=== PATIENT | male | born 2000 | race Two or more races ===

== ENCOUNTER 2020-09-20 08:53 | Emergency (ER) | payer SELFPAY ==
[2020-09-20] MEDS ORDERED: ACETAMINOPHEN 325 MG TABLET PO STA (09:58)
[2020-09-20 10:04] VITALS: BP 107/62
--- NOTE | 2020-09-20 10:11 | XRAY Report ---
PROCEDURE: Hand 3 View LT INDICATIONS: trauma TECHNIQUE: 3 views of the hand(s) acquired. COMPARISON: None FINDINGS: Bones: There is a mildly displaced, comminuted fracture seen at the base of the fifth metacarpal. The re is mild intraventricular involvement seen. No suspicious bony lesions. Soft tissues: No suspicious soft tissue calcifications. IMPRESSION: Mildly displaced fracture of the base of the fifth metacarpal. Intra-articular involvement is faintly seen. If it would be helpful for clinical management decision making, please consider a dedicated CT for fu rther evaluation. Reviewed by: Surinder Vasquez MD on 09/20/2020 9:09 AM ELLIOT Approved by: Surinder Vasquez MD on 09/20/2020 9:09 AM ELLIOT Station ID: [id number]
--- NOTE | 2020-09-20 10:17 | ED Physician Documentation ---
History of Present Illness - Stated complaint Stated Complaint: LEFT HAND INJ - Chief complaint Chief Complaint: Trauma Ext - History obtained from History obtained from: Patient - Additonal information Additional information: 20-year-old man presents with left hand pain after punching a wall yesterday. Somewhat onset, located in the ulnar aspect, associated with swelling, constant and aching. Nonradiating. No pain with range of motion of the wrist. Sensation and movement intact. Review of Systems Musculoskeletal: reports: Extremity pain PD PAST MEDICAL HISTORY - Allergies Allergies/Adverse Reactions: Allergies Allergy/AdvReac Type Severity Reaction Status Date / Time No Known Drug Allergies Allergy Verified 09/20/20 09:02 PD ED PE NORMAL - Vitals Vital signs reviewed: Yes - General General: Alert and oriented X 3, No acute distress, Well developed/nourished - HEENT HEENT: Atraumatic, PERRL, EOMI - Extremities Extremities: Other (Point tenderness to base of fifth metacarpal on the left hand. Swelling over this aspect. Full range of motion of the wrist. Sensory, motor, vascular intact.) Results - Vitals Vitals: Vital Signs - 24 hr 09/20/20 09/20/20 09:00 10:01 Temperature 36.1 C L Heart Rate 72 72 Respiratory 16 16 Rate Blood Pressure 138/65 H 107/62 O2 Saturation 98 100 Oxygen O2 Source Room air PD MEDICAL DECISION MAKING - ED course ED course: 20-year-old man presents with boxer's fracture after punching a wall. Return precautions given. He will follow up with orthopedics. Impression 1 boxer's fracture Departure - Departure Disposition: 01 Home, Self Care Condition: Good Instructions: ED NELLY Lugo Follow-Up: Theo Tellez MD [Provider Admit Priv/Credential] - Comments: You are seen in the emergency department for a boxer's fracture, a break in the bone of the fifth metacarpal of the hand. You should follow-up with orthopedics for repeat exam in 1 week. Wear the splint until then and return to the emergency department you have any new or worsening symptoms or other concerns.
== END 2020-09-20 10:57 | disposition home or self-care (01) ==
LOC: ED 08:53
DX: S62.317A Displaced fracture of base of fifth metacarpal bone, left hand, initial encounter for closed fracture (principal); W22.8XXA Striking against or struck by other objects, initial encounter
CPT/HCPCS: 73130; 99281; 99283; A9270

== ENCOUNTER 2020-10-07 08:00 | Outpatient (CLI) | payer SELFPAY ==
--- NOTE | 2020-10-07 10:30 | XRAY Report ---
PROCEDURE: Hand 3 View LT INDICATIONS: DISPLACED FX OF BASE OF L 5TH METACARPAL TECHNIQUE: 3 views of the hand acquired. COMPARISON: Left knee radiographs 01/21/2021 FINDINGS: Bones: The previously seen fracture at the base of the fifth metacarpal is less prominent on the curr ent exam. The alignment appears unchanged. No new osseous abnormality is seen. No suspicious bony les ions. Soft tissues: No suspicious soft tissue calcifications. IMPRESSION: Unchanged alignment of the previously seen fifth metacarpal base fracture. Reviewed by: Tomas Alex MD on 10/07/2020 9:28 AM ELLIOT Approved by: Tomas Alex MD on 10/07/2020 9:28 AM ELLIOT Station ID: [id number]
== END 2020-10-07 23:59 | disposition home or self-care (01) ==
LOC: DI.N 08:00
PROVIDERS: ATTEND Physician Assistant
DX: S62.317D Displaced fracture of base of fifth metacarpal bone, left hand, subsequent encounter for fracture with routine healing (principal)

== ENCOUNTER 2020-10-28 09:45 | Outpatient (CLI) | payer SELFPAY ==
--- NOTE | 2020-10-28 14:04 | XRAY Report ---
PROCEDURE: Hand 3 View LT INDICATIONS: DISPLACED FX OF BASE OF L 5TH METACARPAL TECHNIQUE: 3 views of the hand(s) acquired. COMPARISON: X-ray hand 09/20/2020, 09/07/2020 FINDINGS: Bones: Stable alignment of fifth metacarpal base fracture with minimal interval healing. Soft tissues : No suspicious soft tissue calcifications. IMPRESSION: Minimal interval healing with stable alignment of fifth metacarpal base fracture. Reviewed by: Yumiko Stokes MD on 10/28/2020 2:02 PM PDT Approved by: Yumiko Stokes MD on 10/28/2020 2:02 PM PDT Station ID: [id number]
== END 2020-10-28 23:59 | disposition home or self-care (01) ==
LOC: DI.N 09:45
PROVIDERS: ATTEND Physician Assistant
DX: S62.317D Displaced fracture of base of fifth metacarpal bone, left hand, subsequent encounter for fracture with routine healing (principal)

== ENCOUNTER 2020-11-18 07:12 | Outpatient (CLI) | payer SELFPAY ==
--- NOTE | 2020-11-18 10:20 | XRAY Report ---
PROCEDURE: Hand 3 View LT INDICATIONS: FRACTURE OF FIFTH METACARPAL BONE LEFT TECHNIQUE: 3 views of the left hand(s) acquired. COMPARISON: 09/20/2020, 10/07/2020 and 10/28/2020. FINDINGS: Bones: Fracture involving the base of the fifth metacarpal is less conspicuous compared to prior exam ination compatible with progression of healing. No suspicious bony lesions. Soft tissues: No suspicious soft tissue calcifications. IMPRESSION: Left fifth metacarpal fracture healing in anatomic alignment. Reviewed by: Citlalli Valentin MD, PhD on 11/18/2020 10:19 AM PDT Approved by: Citlalli Valenitn MD, PhD on 11/18/2020 10:19 AM PDT Station ID: [id number]
== END 2020-11-18 23:59 | disposition home or self-care (01) ==
LOC: DI.N 07:12
PROVIDERS: ATTEND Physician Assistant
DX: S62.317D Displaced fracture of base of fifth metacarpal bone, left hand, subsequent encounter for fracture with routine healing (principal)

== ENCOUNTER 2021-01-06 10:48 | Emergency (ER) | payer MEDICAID ==
--- NOTE | 2021-01-06 11:13 | ED Physician Documentation ---
PD HPI URI - Stated complaint Stated Complaint: CONGESTION/CONSTIPATION - Chief complaint Chief Complaint: Heent - History obtained from History obtained from: Patient - History of Present Illness Timing - onset: How many days ago (5-6) Timing duration: Days Timing details: Gradual onset, Still present Associated symptoms: Fever, Chills, Nasal congestion, Dry cough. No: Dyspnea, NVD Contributing factors: Sick contact (fiance and friend had URI symptoms days prior. No COVID exposure. 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 denies: Rhinorrhea / runny nose Throat: denies: Sore throat Respiratory: reports: Cough GI: reports: Nausea (less intake for several days), Constipation (for few days). denies: Vomiting, Diarrhea Skin: denies: Rash Neurologic: denies: Altered mental status, Headache PD PAST MEDICAL HISTORY - Past Medical History Cardiovascular: None Respiratory: None Neuro: None Endocrine/Autoimmune: None - Present Medications Home Medications: Ambulatory Orders Medication Instructions Recorded Confirmed Cetirizine [ZyrTEC] 10 mg PO BID #14 tablet 01/06/21 dexAMETHasone [Decadron] 4 mg PO DAILY #5 tablet 01/06/21 - Allergies Allergies/Adverse Reactions: Allergies Allergy/AdvReac Type Severity Reaction Status Date / Time No Known Drug Allergies Allergy Verified 01/06/21 11:08 PD ED PE NORMAL - Vitals Vital signs reviewed: Yes - General General: Alert and oriented X 3, No acute distress, Well developed/nourished - HEENT HEENT: Ears normal, Moist mucous membranes, Pharynx benign - Neck Neck: Supple, no meningeal sign, No adenopathy - Cardiac Cardiac: RRR, No murmur - Respiratory Respiratory: Clear bilaterally - Derm Derm: Normal color, Warm and dry, No rash - Neuro Neuro: Alert and oriented X 3, No motor deficit, Normal speech Results - Vitals Vitals: Vital Signs - 24 hr 01/06/21 01/06/21 11:02 12:21 Temperature 36.6 C 36.6 C Heart Rate 79 78 Respiratory 16 16 Rate Blood Pressure 114/69 115/68 O2 Saturation 99 100 Oxygen O2 Source Room air - Labs Labs: Laboratory Tests 01/06/21 12:18 Coronavirus (PCR) NEGATIVE PD MEDICAL DECISION MAKING - ED course Complexity details: considered differential (talked about some constipation but advised just stool softener and fluids as result of decreased intake while sick. Otherwise will work on URI. COVID test for work info. ), d/w patient Departure - Departure Disposition: 01 Home, Self Care Clinical Impression: Upper respiratory infection Qualifiers: URI type: unspecified URI Qualified Code(s): J06.9 - Acute upper respiratory infection, unspecified Condition: Stable Record reviewed to determine appropriate education?: Yes Instructions: ED Upper Resp Infec No Abx Tx Prescriptions: dexAMETHasone [Decadron] 4 mg PO DAILY #5 tablet Cetirizine [ZyrTEC] 10 mg PO BID #14 tablet Comments: This sounds like a viral upper respiratory infection. We did do a Covid test and that should result tomorrow most likely. We can try to help your symptoms with Decadron steroid for the inflammation of sinuses and airways and also cetirizine antihistamine twice daily over the next week. Stay well-hydrated. Add Robitussin or such as needed for cough. I transmitted your scripts to [facility] pharmacy. Work note for you is written. You have a Covid test pending. You need to self quarantine until the result is done and negative. Do not leave your house. Do not get near anybody. The results should be done in 48 to 72 hours, but sometimes longer. We will call with a positive result, the fastest way to get a negative result for confirmation though is to go to the hospital website at [email or web address], click on the my [facility] tab and sign up for the patient portal. If any friends or family get sick and would like to have a Covid test done, but do not have signs or symptoms that would necessitate being hospitalized, we encourage testing through our coronavirus swabbing station, call [phone] to schedule an appointment. Forms: Activity restrictions Discharge Date/Time: 01/06/21 12:26
[2021-01-06] MEDS ORDERED: DEXAMETHASONE 10 MG/ML VIAL PO STA (11:53)
[2021-01-06] MEDS ORDERED: CETIRIZINE 10 MG TABLET PO STA (11:53)
[2021-01-06] MEDS ORDERED: CHERRY SYRUP 10 ML UDC PO ONE (11:53)
[2021-01-06 12:21] VITALS: BP 115/68
== END 2021-01-06 12:26 | disposition home or self-care (01) ==
LOC: ED 10:48
DX: J06.9 Acute upper respiratory infection, unspecified (principal); Z20.822 Contact with and (suspected) exposure to COVID-19; K59.00 Constipation, unspecified
CPT/HCPCS: 87635; 99282; 99283; A9270

== ENCOUNTER 2021-05-03 14:01 | Emergency (ER) | payer BC, MEDICAID ==
[2021-05-03 14:21] VITALS: BP 110/52
--- NOTE | 2021-05-03 15:17 | ED Physician Documentation ---
History of Present Illness - Stated complaint Stated Complaint: HEADACHE, BODYACHE - Chief complaint Chief Complaint: Resp - History obtained from History obtained from: Patient - Additonal information Additional information: Sick for 3 days with dry cough, body aches, sore throat and headache. No fevers. No known exposures to Covid. Has had to COVID shots, no booster. Review of Systems Constitutional: reports: Myalgias, Fatigue. denies: Fever, Chills Nose: reports: Rhinorrhea / runny nose Throat: reports: Sore throat Respiratory: reports: Cough. denies: Dyspnea PD PAST MEDICAL HISTORY - Past Medical History Cardiovascular: None Respiratory: None Neuro: None Endocrine/Autoimmune: None GI: Other : None HEENT: None Psych: None Musculoskeletal: None Derm: None Other Past Medical History: ciliac disease - Past Surgical History Past Surgical History: Yes General: Colonoscopy, EGD - Present Medications Home Medications: Ambulatory Orders Medication Instructions Recorded Confirmed No Known Home Medications 05/03/21 05/03/21 - Allergies Allergies/Adverse Reactions: Allergies Allergy/AdvReac Type Severity Reaction Status Date / Time No Known Drug Allergies Allergy Verified 05/03/21 14:21 - Social History Does the pt smoke?: Yes Smoking Status: Current every day smoker Does the pt drink ETOH?: No Does the pt have substance abuse?: Yes Substance Use and Type: Marijuana, CBD oil / Products - Immunizations Immunizations are current?: Yes PD ED PE NORMAL - Vitals Vital signs reviewed: Yes - General General: Alert and oriented X 3, No acute distress - HEENT HEENT: Pharynx benign - Cardiac Cardiac: RRR, No murmur - Respiratory Respiratory: No respiratory distress, Clear bilaterally - Abdomen Abdomen: Non tender - Derm Derm: No rash - Neuro Neuro: Alert and oriented X 3, Normal speech Results - Vitals Vitals: Vital Signs - 24 hr 05/03/21 14:17 Temperature 36.8 C Heart Rate 69 Respiratory 16 Rate Blood Pressure 110/52 L O2 Saturation 98 Oxygen O2 Source Room air Departure - Departure Disposition: 01 Home, Self Care Clinical Impression: Viral syndrome Condition: Good Record reviewed to determine appropriate education?: Yes Instructions: ED Viral Syndrome Comments: You have a Covid test pending. You need to self quarantine until the result is done and negative. Do not leave your house. Do not get near anybody. The results should be done in 48 to 72 hours. We will call with a positive result, the fastest way to get a negative result for confirmation though is to go to the hospital website at [email or web address], click on the my [facility] tab and sign up for the patient portal. If any friends or family get sick and would like to have a Covid test done, but do not have signs or symptoms that would necessitate being hospitalized, there are multiple local options for Covid testing. [facility] keeps an updated list of testing and vaccination options at: [email or web address]. Forms: Activity restrictions
== END 2021-05-03 15:23 | disposition home or self-care (01) ==
LOC: ED 14:01
DX: U07.1 COVID-19 (principal); B34.9 Viral infection, unspecified; F17.200 Nicotine dependence, unspecified, uncomplicated
CPT/HCPCS: 99282; 99283

== ENCOUNTER 2022-01-20 13:42 | Emergency (ER) | payer BC, MEDICAID ==
[2022-01-20 14:35] VITALS: BP 133/70
--- NOTE | 2022-01-20 15:13 | XRAY Report ---
PROCEDURE: Foot 3 View RT INDICATIONS: fall, R foot pain TECHNIQUE: 3 views of the foot were acquired. COMPARISON: None FINDINGS: Bones: No fractures or dislocations. No suspicious bony lesions. Soft tissues: No tibiotalar joint effusion. Achilles tendon appears normal. IMPRESSION: No trauma found. Normal alignment. Reviewed by: Trent Oliver MD on 01/20/2022 3:11 PM PDT Approved by: Trent Oliver MD on 01/20/2022 3:11 PM PDT Station ID: [id number]
--- NOTE | 2022-01-20 15:29 | ED Physician Documentation ---
PD HPI LOWER EXT INJURY - Stated complaint Stated Complaint: R TOE PX - Chief complaint Chief Complaint: Ext Problem - History obtained from History obtained from: Patient - History of Present Illness PD HPI LOW EXT INJURY LOCATION: Right, Toe (3rd) Pain level max: 4 Pain level now: 2 Improved by: Rest Worsened by: Moving, Palpating Associated symptoms: No: Weakness, Numbness, Tingling, Swelling, Discolored Contributing factors: No: Anticoagulated - Additional information Additional information: Patient is a 22-year-old male who presents to the emergency department stating that he injured his right third toe a few months ago, he states that it was pushed backwards when he tripped, he states that the pain gradually got better, yesterday he states that he slipped on a wet floor and reinjured the toe. Has pain again today. Worse with movement, better with rest. No swelling, no tingling, not discolored. Review of Systems Constitutional: denies: Fever GI: denies: Vomiting Skin: denies: Rash PD PAST MEDICAL HISTORY - Past Medical History Cardiovascular: None Respiratory: None Neuro: None Endocrine/Autoimmune: None GI: Other : None HEENT: None Psych: None Musculoskeletal: None Derm: None - Past Surgical History Past Surgical History: Yes General: Colonoscopy, EGD - Present Medications Home Medications: Ambulatory Orders Medication Instructions Recorded Confirmed No Known Home Medications 05/03/21 05/03/21 - Allergies Allergies/Adverse Reactions: Allergies Allergy/AdvReac Type Severity Reaction Status Date / Time No Known Drug Allergies Allergy Verified 05/03/21 14:21 - Social History Does the pt smoke?: Yes Smoking Status: Current every day smoker Does the pt drink ETOH?: No Does the pt have substance abuse?: Yes - Immunizations Immunizations are current?: Yes PD ED PE NORMAL - Vitals Vital signs reviewed: Yes - General General: Alert and oriented X 3, No acute distress - Derm Derm: Warm and dry - Extremities Extremities: Other (Normal examination of the right foot. No bony tenderness. No swelling. Neurovascular intact. No tenderness along the plantar or dorsal aspect of the foot. Normal nailbed examination.) - Neuro Neuro: Alert and oriented X 3 Results - Vitals Vitals: Vital Signs - 24 hr 01/20/22 14:31 Temperature 36.7 C Heart Rate 66 Respiratory 18 Rate Blood Pressure 133/70 H O2 Saturation 98 Oxygen O2 Source Room air - Rads (name of study) Right foot x-ray Radiology: Final report received, EMP read contemporaneously, See rad report (No acute abnormality) PD MEDICAL DECISION MAKING - ED course Complexity details: reviewed results, considered differential, d/w patient ED course: Patient with what appears to be a right toe sprain. No acute findings on x-ray. We will continue conservative therapy and have him follow-up with his doctor. Patient counseled regarding signs and symptoms for which I believe and urgent re-evaluation would be necessary. Patient with good understanding of and agree ment to plan and is comfortable going home at this time This document was made in part using voice recognition software. While efforts are made to proofread this document, sound alike and grammatical errors may occur. Departure - Departure Disposition: 01 Home, Self Care Clinical Impression: Sprain of toe Qualifiers: Encounter type: initial encounter Qualified Code(s): S93.509A - Unspecified sprain of unspecified toe(s), initial encounter Condition: Good Instructions: ED Sprain Toe Follow-Up: your,doctor in 1 week if still having pain [Other] Comments: Your x-ray does not show any acute abnormalities. This should improve on its own. You can use Motrin or Tylenol as needed for pain. Return if you worsen. Follow-up with your doctor as needed for further care.
== END 2022-01-20 15:33 | disposition home or self-care (01) ==
LOC: ED 13:42
DX: S93.504A Unspecified sprain of right lesser toe(s), initial encounter (principal); W01.0XXA Fall on same level from slipping, tripping and stumbling without subsequent striking against object, initial encounter; F17.200 Nicotine dependence, unspecified, uncomplicated
CPT/HCPCS: 99282; 99283

== ENCOUNTER 2022-05-23 17:15 | Emergency (ER) | payer MEDICAID ==
[2022-05-23 17:26] VITALS: BP 126/72
[2022-05-23 17:55] LABS: BILIRUBIN,URINE NEGATIVE (NEGATIVE); GLUCOSE, URINE (UA) NEGATIVE (NEGATIVE); KETONES,URINE (UA) NEGATIVE (NEGATIVE); LEUKOCYTE ESTERASE, URINE NEGATIVE (NEGATIVE); NITRITE,URINE NEGATIVE (NEGATIVE); OCCULT BLOOD,URINE NEGATIVE (NEGATIVE); PROTEIN,URINE NEGATIVE (NEGATIVE); UROBILINOGEN,URINE 0.2 (NORMAL) E.U./dL (NORMAL)
[2022-05-23 17:57] LABS: BASOPHILS # (AUTO) 0.1 10^3/uL (0.0-0.1); BASOPHILS % (AUTO) 0.8 %; EOSINOPHILS # (AUTO) 0.2 10^3/uL (0.0-0.7); EOSINOPHILS % (AUTO) 1.6 %; HCT - HEMATOCRIT 46.6 % (42.0-52.0); HGB - HEMOGLOBIN 14.8 g/dL (14.0-18.0); LYMPHOCYTES # (AUTO) 2.8 10^3/uL (1.5-3.5); LYMPHOCYTES % (AUTO) 28.7 %; MEAN CORPUSCULAR HEMOGLOBIN 26.2 pg (27.0-31.0); MEAN CORPUSCULAR HGB CONC 31.8 g/dL (32.0-36.0); MEAN CORPUSCULAR VOLUME 82.5 fL (80.0-94.0); MEAN PLATELET VOLUME 9.3 fL (7.4-11.4); MONOCYTES % (AUTO) 10.5 %; NEUTROPHILS # (AUTO) 5.6 10^3/uL (1.5-6.6); NEUTROPHILS % (AUTO) 58.2 %; PLT - PLATELET COUNT 298 10^3/uL (130-450); RED BLOOD COUNT 5.65 10^6/uL (4.70-6.10); RED CELL DISTRIBUTION WIDTH 12.7 % (12.0-15.0); WHITE BLOOD COUNT 9.6 x10^3/uL (4.8-10.8)
[2022-05-23 17:58] LABS: CLARITY,URINE CLEAR (CLEAR)
[2022-05-23 18:07] LABS: ALBUMIN 4.8 g/dL (3.2-5.5); ALBUMIN/GLOBULIN RATIO 1.4 (1.0-2.2); BILIRUBIN,TOTAL 0.7 mg/dL (0.2-1.0); CALCIUM 9.7 mg/dL (8.5-10.3); CREATININE 0.9 mg/dL (0.6-1.2); TOTAL PROTEIN 8.2 g/dL (6.7-8.2)
--- NOTE | 2022-05-23 18:33 | ED Physician Documentation ---
PD HPI ABD PAIN - Stated complaint Stated Complaint: ABD PX/CELIAC - Chief complaint Chief Complaint: Abd Pain - History obtained from History obtained from: Patient - Additional information Additional information: The patient comes to the emergency department chief complaint of abdominal cramping and intermittent diarrhea and nausea for the last month. He has a history of celiac disease and believes he is having a flareup of celiac that started After using the gluten-free microwave at his job. He believes that somebody must of cooked gluten-containing food in the microwave and that this contaminated his food and this caused his symptoms. He is hoping to get a work note because he has missed a lot of work since his symptoms started. He has a primary doctor but does not have an appointment till August. 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 No other complaints at this time. He does state that he has been using his fiance's Zofran, as she is and nauseated. PD PAST MEDICAL HISTORY - Past Medical History Past Medical History: Yes Cardiovascular: None Respiratory: None Neuro: None Endocrine/Autoimmune: None GI: Other : None HEENT: None Psych: None Musculoskeletal: None Derm: None Other Past Medical History: ciliac disease - Past Surgical History Past Surgical History: Yes General: Colonoscopy, EGD - Present Medications Home Medications: Ambulatory Orders Medication Instructions Recorded Confirmed Ondansetron Odt [Zofran] 4 mg TL Q6H PRN #10 tablet 05/23/22 - Allergies Allergies/Adverse Reactions: Allergies Allergy/AdvReac Type Severity Reaction Status Date / Time No Known Drug Allergies Allergy Verified 05/23/22 17:20 - Social History Does the pt smoke?: No Smoking Status: Former smoker Does the pt drink ETOH?: No Does the pt have substance abuse?: Yes Substance Use and Type: Marijuana - Immunizations Immunizations are current?: Yes PD ED PE NORMAL - Vitals Vital signs reviewed: Yes - General General: Alert and oriented X 3, No acute distress, Well developed/nourished - HEENT HEENT: Atraumatic, PERRL, EOMI, Moist mucous membranes - Neck Neck: Supple, no meningeal sign - Cardiac Cardiac: RRR, No murmur, Strong equal pulses - Respiratory Respiratory: No respiratory distress, Clear bilaterally - Abdomen Abdomen: Soft, Non tender, Non distended - Derm Derm: Warm and dry - Extremities Extremities: No deformity - Neuro Neuro: Alert and oriented X 3 - Psych Psych: Normal mood, Normal affect Results - Vitals Vitals: Vital Signs - 24 hr 05/23/22 17:21 Temperature 37.1 C Heart Rate 78 Respiratory 16 Rate Blood Pressure 126/72 O2 Saturation 99 Oxygen O2 Source Room air - Labs Labs: Laboratory Tests 05/23/22 05/23/22 05/23/22 17:50 17:51 17:51 WBC 9.6 RBC 5.65 Hgb 14.8 Hct 46.6 MCV 82.5 MCH 26.2 L MCHC 31.8 L RDW 12.7 Plt Count 298 MPV 9.3 Neut # (Auto) 5.6 Lymph # (Auto) 2.8 [place] # (Auto) 1.0 Eos # (Auto) 0.2 Baso # (Auto) 0.1 Absolute Nucleated RBC 0.00 Nucleated RBC % 0.0 Sodium 139 Potassium 4.0 Chloride 102 Carbon Dioxide 30 Anion Gap 7.0 BUN 11 Creatinine 0.9 Estimated GFR (MDRD) 106 Glucose 89 Calcium 9.7 Total Bilirubin 0.7 AST 21 ALT 18 Alkaline Phosphatase 61 Total Protein 8.2 Albumin 4.8 Globulin 3.4 Albumin/Globulin Ratio 1.4 Lipase 29 Urine Color YELLOW Urine Clarity CLEAR Urine pH 8.0 H Ur Specific [place] 1.015 Urine Protein NEGATIVE Urine Glucose (UA) NEGATIVE Urine Ketones NEGATIVE Urine Occult Blood NEGATIVE Urine Nitrite NEGATIVE Urine Bilirubin NEGATIVE Urine Urobilinogen 0.2 (NORMAL) Ur Leukocyte Esterase NEGATIVE Ur Microscopic Review NOT INDICATED Urine Culture Comments NOT INDICATED PD Medical Decision Making - ED course Complexity details: reviewed results, re-evaluated patient, considered differential, d/w patient ED course: The patient is very well-appearing and I discussed with him that there is no specific emergent management indicated at this time. His labs look good. I cannot write him a work note for the past month that he has been off, but I have agreed to write him for the rest this week so he can work on getting in to see primary care sooner and figuring out how to follow-up with gastroenterology. I prescribed him his own course of Zofran. We have discussed the usual indications for return. Departure - Departure Disposition: 01 Home, Self Care Clinical Impression: Abdominal pain Qualifiers: Abdominal location: lower abdomen, unspecified Qualified Code(s): R10.30 - Lower abdominal pain, unspecified Vomiting Qualifiers: Vomiting type: bilious vomiting Nausea presence: with nausea Qualified Code(s): R11.14 - Bilious vomiting Condition: Stable Instructions: ED Nausea Vomiting, Diet Gluten Free Celiac Prescriptions: Ondansetron Odt [Zofran] 4 mg TL Q6H PRN #10 tablet PRN Reason: Nausea / Vomiting Comments: Your labs look good. A prescription for nausea medication has been electronically transmitted to the [facility] pharmacy in [place] at your request. Please use your days off to try to get an earlier appointment with your primary doctor and to look into following up with gastroenterology. Please be sure you are eating a clean diet and avoiding the things that cause your intestines to flareup.
== END 2022-05-23 18:45 | disposition home or self-care (01) ==
LOC: ED 17:15
DX: R10.30 Lower abdominal pain, unspecified (principal); R11.14 Bilious vomiting; Z87.891 Personal history of nicotine dependence
CPT/HCPCS: 36415; 80053; 81001; 81003; 83690; 85025; 87086; 99283